=== PATIENT | female | born 1995 | race Caucasian/White ===

== ENCOUNTER 2019-05-02 12:29 | Inpatient (IN) | payer OTHER, MEDICAID ==
[~2019-05-02] VITALS: Ht 160 cm; Wt 88.0 kg
[~2019-05-02 12:29] MED LIST: Colchicine PO; FLUC200T PO; IBUP200C11 PO; LISI10TA2 PO; MAGN400T28 PO; METO-429 PO; PRED20TA PO; RIBO100T8 PO; SULF-182 PO
[2019-05-02 19:45] VITALS: Ht 160 cm; Wt 88.0 kg
[2019-05-19 19:52] VITALS: BP 120/72; PULSE 110; RESP 20
== END 2019-05-19 20:46 | disposition short-term general hospital (02) | DRG 871 ==
LOC: E/R 12:29 → 6WM 14:28 → ICU 05-09 13:21 → TEL 05-13 18:18
PROVIDERS: ADMIT Internal Medicine; ATTEND Internal Medicine
PROC: 07DR3ZX Extraction of Iliac Bone Marrow, Percutaneous Approach, Diagnostic (ICD-10-PCS; principal; 2019-05-07)
PROC: 02H633Z Insertion of Infusion Device into Right Atrium, Percutaneous Approach (ICD-10-PCS; 2019-05-10)
PROC: 30233N1 Transfusion of Nonautologous Red Blood Cells into Peripheral Vein, Percutaneous Approach (ICD-10-PCS; 2019-05-11)
PROC: 0DB58ZX Excision of Esophagus, Via Natural or Artificial Opening Endoscopic, Diagnostic (ICD-10-PCS; 2019-05-17)
PROC: 0DB68ZX Excision of Stomach, Via Natural or Artificial Opening Endoscopic, Diagnostic (ICD-10-PCS; 2019-05-17)
DX: A41.9 Sepsis, unspecified organism (principal); J96.01 Acute respiratory failure with hypoxia; I50.31 Acute diastolic (congestive) heart failure; J69.0 Pneumonitis due to inhalation of food and vomit; I82.4Z1 Acute embolism and thrombosis of unspecified deep veins of right distal lower extremity; N17.9 Acute kidney failure, unspecified; N39.0 Urinary tract infection, site not specified; E22.2 Syndrome of inappropriate secretion of antidiuretic hormone; J98.11 Atelectasis; J90 Pleural effusion, not elsewhere classified; J91.8 Pleural effusion in other conditions classified elsewhere; I31.9 Disease of pericardium, unspecified; I47.2 Ventricular tachycardia; D64.9 Anemia, unspecified; D72.819 Decreased white blood cell count, unspecified; E87.6 Hypokalemia; E66.9 Obesity, unspecified; E87.70 Fluid overload, unspecified; I11.0 Hypertensive heart disease with heart failure; K20.9 Esophagitis, unspecified; K29.70 Gastritis, unspecified, without bleeding; M35.9 Systemic involvement of connective tissue, unspecified; M32.10 Systemic lupus erythematosus, organ or system involvement unspecified; M25.50 Pain in unspecified joint; N93.9 Abnormal uterine and vaginal bleeding, unspecified; R13.12 Dysphagia, oropharyngeal phase; R60.0 Localized edema; R19.7 Diarrhea, unspecified; Z86.011 Personal history of benign neoplasm of the brain; Z92.21 Personal history of antineoplastic chemotherapy; Z68.34 Body mass index [BMI] 34.0-34.9, adult
CPT/HCPCS: 36430; 36569; 36600; 71045; 71250; 71275; 74177; 74230; 76856; 76937; 77012; 80048; 80053; 80061; 80202; 81001; 81003; 81025; 82043; 82270; 82306; 82550; 82553; 82565; 82570; 82595; 82607; 82652; 82668; 82728; 82746; 82803; 83010; 83036; 83540; 83605; 83615; 83690; 83735; 83880; 83935; 83970; 84100; 84132; 84145; 84155; 84156; 84165; 84166; 84300; 84436; 84443; 84479; 84484; 84520; 84703; 85014; 85018; 85025; 85045; 85049; 85610; 85651; 85670; 85730; 86021; 86038; 86140; 86147; 86160; 86200; 86226; 86235; 86320; 86325; 86360; 86430; 86703; 86704; 86709; 86803; 86850; 86900; 86901; 86920; 87015; 87045; 87075; 87081; 87086; 87205; 87281; 87340; 87400; 87449; 87536; 88305; 88313; 92526; 92610; 92611; 93005; 93306; 93308; 93970; 94640; 96374; 97110; 97116; 97163; 97164; 97530; C9113; J0131; J0692; J1650; J1885; J1940; J2250; J2270; J2405; J2543; J2765; J2916; J2930; J3010; J3370; J3475; J7030; J7040; J7050; J7060; J7512; P9016; Q5110; Q9967